=== PATIENT | male | born 1985 | race Caucasian/White ===

== ENCOUNTER 2018-08-03 20:16 | Emergency (ER) | payer SELFPAY ==
[2018-08-03] MEDS ORDERED: CYCLOBENZAPRINE HCL 10 MG TABLET PO ONE (22:28)
[2018-08-03] MEDS ORDERED: KETOROLAC TROMETHAMINE 60 MG/2 ML SDV IM ONE (22:28)
--- NOTE | 2018-08-03 22:33 | ER Document Report ---
ED Medical Screen (RME) - General Chief Complaint: Hip Pain Stated Complaint: RIGHT HIP PAIN/BACK PAIN Time Seen by Provider: 08/03/18 22:27 Notes: Patient is a 32 male presenting to the emergency department complaining of lower back pain radiating to his right buttocks and right lower leg. Patient states a few days ago he was walking carrying a heavy load of equipment when he tripped and fell. Patient states "I almost did the splits." Patient states since then he has had increased pain in his lower back moving into his right buttocks and down his right leg. Patient states he has a history of sciatic nerve pain but states his pain is usually on the left side. Patient denies loss of bowel or bladder or urinary retention. PE: Minor pain lumbar spinal region and right paraspinal going into right buttocks. 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 Leg raise exam unable to be obtained because patient was in triage. I have greeted and performed a rapid initial assessment of this patient. A comprehensive ED assessment and evaluation of the patient, analysis of test results and completion of the medical decision making process will be conducted by additional ED providers. TRAVEL OUTSIDE OF THE [place] IN LAST 30 DAYS: No Physical Exam - Vital signs Vitals: Temp Pulse Resp BP Pulse Ox 98.6 F 91 20 128/85 H 97 08/03/18 20:31 08/03/18 20:31 08/03/18 20:31 08/03/18 20:31 08/03/18 20:31 Course - Vital Signs Vital signs: Temp Pulse Resp BP Pulse Ox 98.6 F 91 20 128/85 H 97 08/03/18 20:31 08/03/18 20:31 08/03/18 20:31 08/03/18 20:31 08/03/18 20:31
--- NOTE | 2018-08-03 23:19 | RADIOLOGY REPORT (SQ) ---
EXAM DESCRIPTION: XR LUMBAR SPINE ANTEROPOSTERIOR, LATERAL, AND OBLIQUES COMPLETED DATE/TME: 08/03/2018 22:28 CLINICAL HISTORY: 32 years ,Male fall/pain COMPARISON: None. TECHNIQUE: Four views FINDINGS: Vertebral body alignment is unremarkable. No acute fractures are identified. There is subtle leftward convexity curvature. No evidence of spondylolysis or spondylolisthesis. IMPRESSION: No acute fracture is identified.
[2018-08-04] MEDS ORDERED: DEXAMETHASONE SOD PHOS INJ 10 MG/1 ML VIAL IM ONE (01:13)
[2018-08-04] MEDS ORDERED: OXYCODONE HCL IR 5 MG TABLET PO ONE (01:13)
[2018-08-04] MEDS ORDERED: LIDOCAINE 5% (700 MG) TRANSDERMAL ADH..PATCH TP ONE (01:13)
--- NOTE | 2018-08-04 01:19 | ER Document Report ---
HPI - HPI Pain Level: 4 Notes: Patient is a 32-year-old male with a history of chronic back pain and sciatica on the left side who presents to the ED complaining of right lower back pain which will radiate around his hip and into his anterior thigh intermittently status post injury 2 days ago while at work. Patient states that he was on a roof when some of the material below his feet slipped out causing him to abduct. Pt has had pain since then. The pain is primarily with movement and use of his leg. Patient states that he is still able to ambulate. He denies any drug allergies. He is eating and drinking without any difficulties. He is urinating normally and having normal bowel movements. He denies any IV drug use or previous history of spinal abscess. Denies any headache, fever, URI, sore throat, chest pain, palpitations, syncope, cough, shortness of breath, wheeze, dyspnea, abdominal pain, nausea/vomiting/diarrhea, urinary retention, dysuria, hematuria, loss of control of bowel or bladder, numbness, saddle anesthesia, muscle paralysis/weakness, or rash. - ROS Systems Reviewed and Negative: Yes All other systems reviewed and negative - DERM Skin Color: Normal Past Medical History - Social History Smoking Status: Current Every Day Smoker Chew tobacco use (# tins/day): No Frequency of alcohol use: Rare Drug Abuse: Marijuana Family History: Reviewed & Not Pertinent Patient has suicidal ideation: No Patient has homicidal ideation: No Renal/ Medical History: Denies: Hx Peritoneal Dialysis Vertical Provider Document - CONSTITUTIONAL Agree With Documented VS: Yes Notes: PHYSICAL EXAMINATION: GENERAL: Well-appearing, well-nourished and in no acute distress. LUNGS: Breath sounds clear to auscultation bilaterally and equal. No wheezes rales or rhonchi. HEART: Regular rate and rhythm without murmurs, rubs, gallops. ABDOMEN: Soft, nontender, nondistended abdomen. No guarding, no rebound. No masses appreciated. Normal bowel sounds present. No CVA tenderness bilaterally. No pulsatile mass Musculoskeletal: LE's b/l: FROM to passive/active. Strength 5+/5. No deficits noted. No bony tenderness of extremities. Back: FROM to passive/active. Strength 5+/5. No vertebral point tenderness, stepoffs, or deformities. No other bony tenderness, erythema, swelling, or ecchymosis. SLR negative b/l. + mild tenderness to the L-paraspinal mm rt. Mild spasming. + rt SI jt tenderness, correlates with pain described. No foot drop Extremities: No cyanosis, clubbing, or edema b/l. Peripheral pulses 2+. Capillary refill less than 2 seconds. NEUROLOGICAL: Normal speech, normal gait. Normal sensory, motor exams. Reflexes 2+ b/l. PSYCH: Normal mood, normal affect. SKIN: Warm, Dry, normal turgor, no rashes or lesions noted. - INFECTION CONTROL TRAVEL OUTSIDE OF THE [place] IN LAST 30 DAYS: No Course - Re-evaluation Re-evalutation: 08/04/18 01:16 I saw this patient after he spent time at triage and received Toradol and Flexeril with minimal relief so he was moved on for further evaluation. Patient is an afebrile, well-hydrated, 32-year-old male who presents to the ED with right sacroiliitis and probable muscle strain to his lower back. Vitals are acceptable without any significant tachycardia, tachypnea, or hypoxia. PE is otherwise unremarkable for any focal neurological deficits. X-ray was unremarkable for any acute pathology. Patient was given Decadron, Toradol, and Lidoderm patch. He has no significant tachycardia, tachypnea, or hypoxia. He is nontoxic-appearing and is tolerating p.o. without difficulties. There are no signs of infection. No other red flag symptoms noted. No other labs or imaging warranted at this time based on H&P. I did give patient 1 tablet of oxycodone 5 mg. I did review with him thoroughly that I will not be sending him home with any narcotic medication and I will only be giving him 1 tablet here which he is agreeable to. Pt states that he has a ride home. Low suspicion for any meningitis, fracture, expanding/ruptured AAA, cauda equina syndrome, epidural mass lesion/abscess, herniated disc causing severe spinal stenosis, or other systemic infection at this time. Patient is aware that his condition can change from initial presentation and that he needs monitor symptoms closely for any acute changes. I will send him home with a prescription for baclofen and naproxen. Conservative measures otherwise for symptoms. Recheck with your PCM in 3-5 days. Consider consult with orthopedic/ physical therapy. Return to the ED with any worsening/concerning symptoms otherwise as reviewed discharge. Patient is in agreement. Work note provided. - Vital Signs Vital signs: Temp Pulse Resp BP Pulse Ox 98.6 F 91 20 128/85 H 97 08/03/18 20:31 08/03/18 20:31 08/03/18 20:31 08/03/18 20:31 08/03/18 20:31 Discharge - Discharge Clinical Impression: Sacroiliitis Low back pain Qualifiers: Chronicity: acute Back pain laterality: right Sciatica presence: unspecified whether sciatica present Qualified Code(s): M54.5 - Low back pain Condition: Stable Disposition: HOME, SELF-CARE Instructions: Muscle Relaxers ([facility]), Stretching Exercises for the Back ([facility]), Low Back Pain ([facility]) Additional Instructions: Rest, Ice Tylenol/ibuprofen as needed Light stretches daily Strength exercises as able Moist heat and massage may help F/u with your PCP in 3-5 days for a recheck Consider consult(s) with Orthopedics/physical therapy for ongoing/worsening symptoms Return to the ED with any worsening symptoms and/or development of fever, headache, chest pain, palpitations, syncope, shortness of breath, trouble breathing, abdominal pain, n/v/d, blood in stool/urine, loss of control of bowel /bladder, urinary retention, muscle weakness/paralysis, saddle anesthesia, numbness/tingling, or other worsening symptoms that are concerning to you. Prescriptions: Baclofen [Baclofen 10 mg Tablet] 5 - 10 mg PO BID PRN #10 tablet PRN Reason: Naproxen 500 mg PO BID PRN #20 tablet PRN Reason: Forms: Elevated Blood Pressure, Smoking Cessation Education, Return to Work Referrals: [facility] [Provider Group] - Follow up as needed
[2018-08-04 01:34] VITALS: BP 160/84
== END 2018-08-04 02:00 | disposition home or self-care (01) ==
LOC: ER 20:16
DX: M46.1 Sacroiliitis, not elsewhere classified (principal); M54.5 Low back pain; F17.200 Nicotine dependence, unspecified, uncomplicated; W17.89XA Other fall from one level to another, initial encounter
CPT/HCPCS: 99283; 96372; 72110; J1885; J1100